=== PATIENT | male | born 1995 | race African-American/Black ===

== ENCOUNTER 2017-08-21 11:09 | Emergency (ER) | payer OTHER ==
[~2017-08-21 11:09] MED LIST: CONC54TA4 PO; RISP.25 PO
[2017-08-21 11:10] VITALS: BP 155/89; PULSE 95; RESP 16; TEMP 98.9; O2SAT 99
[2017-08-21] MEDS ORDERED: RISP.25 PO (12:26)
[2017-08-21] MEDS ORDERED: CONC54TA4 PO (12:26)
[2017-08-21] MEDS ORDERED: CYCL10TA PO (12:39)
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
== END 2017-08-21 12:54 | disposition home or self-care (01) ==
LOC: NEPK 11:09
DX: S29.012A Strain of muscle and tendon of back wall of thorax, initial encounter (principal); S39.012A Strain of muscle, fascia and tendon of lower back, initial encounter; F90.9 Attention-deficit hyperactivity disorder, unspecified type; V43.52XA Car driver injured in collision with other type car in traffic accident, initial encounter; Y92.410 Unspecified street and highway as the place of occurrence of the external cause
CPT/HCPCS: 99283